=== PATIENT | male | born 1985 ===

== ENCOUNTER 2018-07-07 09:12 | Emergency (ER) | payer OTHER ==
[2018-07-07 09:22] VITALS: BP 121/69; PULSE 67; RESP 16; TEMP 97.7; O2SAT 96
--- NOTE | 2018-07-07 09:37 | C.PDOC ---
History Of Present Illness 32 year old male presents to ED with complaint of waxing and waning headache for the past 2 weeks. Patient states that the headache positionally changes. He also complains of nasal congestion. Patient been taken aspirin occasionally with out improvement. He also notes that 12 years ago a piece of wood fell on his head at a construction site and is curious if it caused brain damage. No sequela from injury noted. Patient denies vision changes, photophobia, nausea, vomiting, weakness, or numbness. Time Seen by Provider: 07/07/18 09:23 Chief Complaint (Nursing): Headache History Per: Patient History/Exam Limitations: no limitations Onset/Duration Of Symptoms: Waxing/Waning, Other (2 weeks) Current Symptoms Are (Timing): Still Present Quality: Aching Preceeding Symptoms: None Associated Symptoms: denies: Photophobia, Blurred Vision, Nausea, Vomiting, Extremity Weakness Past Medical History Reviewed: Historical Data, Nursing Documentation, Vital Signs Vital Signs: Last Vital Signs Temp 97.7 F 07/07/18 09:19 Pulse 67 07/07/18 09:19 Resp 16 07/07/18 09:19 BP 121/69 07/07/18 09:19 Pulse Ox 96 07/07/18 09:19 Primary Care Provider: FAMILY PROVIDER,NO - Medical History PMH: No Chronic Diseases Surgical History: No Surg Hx Family History: States: Unknown Family Hx - Social History Hx Alcohol Use: No Hx Substance Use: No - Immunization History Hx Tetanus Toxoid Vaccination: No Review Of Systems Constitutional: Negative for: Fever, Chills, Weakness Eyes: Negative for: Vision Change, Other (photophobia) ENT: Positive for: Nose Congestion Respiratory: Negative for: Cough, Sputum Gastrointestinal: Negative for: Nausea, Vomiting Neurological: Negative for: Weakness, Numbness Physical Exam - Physical Exam Appears: Well, Non-toxic, No Acute Distress Skin: Normal Color, Warm, Dry Head: Atraumatic, Normacephalic, No Tenderness (to the occipital scalp) Eye(s): bilateral: Normal Inspection Ear(s): Bilateral: Normal Nose: No Discharge, No Deformity, No Septal Hematoma, Other (severe swelling and kissing turbinates) Oral Mucosa: Moist Throat: Normal, No Erythema, No Exudate Neck: Normal ROM, Supple Chest: Symmetrical, No Deformity Extremity: Capillary Refill (<2 seconds) Extremity: Bilateral: Atraumatic, Normal Color And Temperature, Normal ROM Pulses: Left Radial: Normal, Right Radial: Normal Neurological/Psych: Oriented x3, Normal Speech, Normal Cognition, Normal Motor, Normal Sensation Gait: Steady ED Course And Treatment O2 Sat by Pulse Oximetry: 96 (in RA) Pulse Ox Interpretation: Normal Progress Note: Patient given Motrin PO and Sudafed PO. Patient is resting comfortably, in no acute distress and stable for discharge. Patient advised to follow up with clinic. Patient advised to return to ED if symptoms persist or worsen. Medical Decision Making Medical Decision Making: chronic sinus headaches nasal inflammation and kissing turbinates meds educated opt f/u for Neuro eval and MRI PRN Disposition Doctor Will See Patient In The: Office Counseled Patient/Family Regarding: Studies Performed, Diagnosis - Disposition Referrals: [facility] [Outside] [facility] [Outside] [facility] [Outside] [facility] ([facility]) [Outside] Disposition: HOME/ ROUTINE Disposition Time: 09:37 Condition: GOOD Additional Instructions: Motrin/Advil 400-600 mg cada 6 horas Psdudafed 30 mg cada 6 horas frances necessario Claritin 10 mg diario Flonase [place] 1 spray cada lado del nariz cada 12 horas hasta el [place] (espray Horizontal) Sigue con la [facility] frances necessario Instructions: Sinus Headache (DC) Forms: [facility] (Vietnamese) Print Language: UGANDAN - Clinical Impression Clinical Impression: Headache - Scribe Statement The provider has reviewed the documentation as recorded by the Scribe (Jaymie Gaspar) All medical record entries made by the Scribe were at my direction and personally dictated by me. I have reviewed the chart and agree that the record accurately reflects my personal performance of the history, physical exam, medical decision making, and the department course for this patient. I have also personally directed, reviewed, and agree with the discharge instructions and disposition.
== END 2018-07-07 09:44 | disposition home or self-care (01) ==
LOC: C.ER 09:12
DX: R51 Headache (principal)